=== PATIENT | female | born 1930 ===

== ENCOUNTER → 2017-10-01 | Outpatient (CLI) | payer OTHER ==
[~2017-10-01] VITALS: Ht 152.4 cm; Wt 64.0 kg
[~2017-10-01] MED LIST: ADULT ASPIRIN81 MG; VERTICALM25 MG PO; ZOCOR5 MG; ZYRTEC10 MG PO
== END | disposition home or self-care (01) ==
LOC: PPHC 12:33
DX: I10 Essential (primary) hypertension (principal)

== ENCOUNTER → 2017-10-08 | Outpatient (CLI) | payer OTHER ==
[~2017-10-08] VITALS: Ht 152.4 cm; Wt 64.4 kg
== END | disposition home or self-care (01) ==
LOC: PPHC 10:11
DX: I10 Essential (primary) hypertension (principal)